=== PATIENT | male | born 1970 | race Caucasian/White ===

== ENCOUNTER 2017-11-14 23:22 | Inpatient (IN) | payer OTHER ==
[~2017-11-14] VITALS: Ht 162.6 cm; Wt 100.0 kg
[2017-11-15] MEDS ORDERED: POTASSIUM CHLORIDE 25 MEQ EFFERVESCENT TAB PO PRN (07:45)
[2017-11-15] MEDS ORDERED: POTASSIUM CHLOR 40 MEQ PREMIX 100 ML IV PRN ×2 (07:45)
[2017-11-15] MEDS ORDERED: RESP: ALBUTEROL 2.5 MG/IPRATROPIUM 0.5 MG NEB (PRN) INH (07:45)
[2017-11-15] MEDS ORDERED: ONDANSETRON HCL 4 MG/2 ML VIAL IV PUSH PRN (07:45)
[2017-11-15] MEDS ORDERED: SENNOSIDES 8.6 MG TAB PO PRN (07:45)
[2017-11-15] MEDS ORDERED: MISCELLANEOUS NURSING INFORMATION XX SCH (07:45)
[2017-11-15] MEDS ORDERED: SODIUM PHOSPHATE INJ 30 MMOL in SODIUM CHLOR 0.9% 250 ML INJ 240 ML IV PRN (07:45)
[2017-11-15] MEDS ORDERED: CHLORHEXIDINE GLUCONATE 2 % 1 PACK (2 CLOTHS) TOP PRN (07:45)
[2017-11-15] MEDS ORDERED: POTASSIUM PHOSPHATE MONOBASIC 500 MG TAB PO/TUBE PRN (07:45)
[2017-11-15] MEDS ORDERED: MAGNESIUM OXIDE 400 MG TAB PO PRN (07:45)
[2017-11-15] MEDS ORDERED: POTASSIUM PHOSPHATE MONOBASIC 500 MG TAB PO PRN (07:45)
[2017-11-15] MEDS ORDERED: POTASSIUM PHOSPHATE INJ 30 MMOL in SODIUM CHLOR 0.9% 250 ML INJ 250 ML IV PRN (07:45)
[2017-11-15] MEDS ORDERED: POTASSIUM CHLOR 20 MEQ PREMIX 100 ML IV PRN ×2 (07:45)
[2017-11-15] MEDS ORDERED: MAGNESIUM HYDROXIDE SUSP 30 ML CUP PO PRN (07:45)
[2017-11-15] MEDS ORDERED: MAGNESIUM SULFATE INJ 4 GM in SODIUM CHLORIDE 0.9% INJ 92 ML IV PRN (07:45)
[2017-11-15] MEDS ORDERED: DEXTROSE 50% IN WATER 50 ML VIAL(D50) IV PUSH PRN (07:45)
[2017-11-15] MEDS ORDERED: MAGNESIUM SULFATE INJ 2 GM in SODIUM CHLORIDE 0.9% INJ 96 ML IV PRN (07:45)
[2017-11-15] MEDS ORDERED: HYDR25TA5 PO (07:58)
[2017-11-15] MEDS ORDERED: OMEP40CA2 (07:58)
[2017-11-15] MEDS ORDERED: METO100T PO (07:58)
[2017-11-15] MEDS ORDERED: AMLO10TA2 PO (07:58)
[2017-11-15] MEDS ORDERED: LOVA10TA PO (07:58)
[2017-11-15] MEDS ORDERED: LISI40TA PO (07:58)
[2017-11-15 08:00] VITALS: BP 148/75; PULSE 68; RESP 12; TEMP 98.9; O2SAT 95
[2017-11-15] MEDS ORDERED: SODIUM CHLOR 0.9% 1000 ML INJ 1,000 ML IV SCH (08:00)
[2017-11-15] MEDS: INSULIN NovoLIN REGULAR SUPPLEMENTAL SCALE SQ SCH ×3 (08:00→21:00)
--- NOTE | 2017-11-15 08:35 | HHI.HP ---
HPI Service Critical Care Medicine Primary Care Physician Unknown Admission Diagnosis Diagnosis: Chief Complaint: headache Travel History International Travel<30 Days: No Contact w/Intl Traveler <30 Da: No Traveled to Known Affected Are: No History of Present Illness This is a 47yM with history of hypertension who was eating dinner when he coughed forcefully and passed out, hitting his head. he sustained a laceration to his forehead. He went to outside hospital ED where they diagnosed him with a depressed skull fracture and sutured his laceration. He is transferred to [facility] for neurosurgical evaluation of his skull fracture. Of note, he does state that he drinks at least 4 pints of beer "when he drinks." He also states this has happened at least once before after forceful coughing. He endorses mild headache and denies any other symptoms, including blurry vision, double vision, vision changes, weakness, numbness, nausea, vomiting, abdominal pain, neck pain , back pain. ROS otherwise negative. Review of Systems Constitutional: DENIES: Diaphoretic episodes, Fatigue, Fever, Chills Eyes: DENIES: Blurred vision, Diplopia, Vision loss, Photosensitivity, Double Vision Ears, nose, mouth, throat: DENIES: Tinnitus Respiratory: DENIES: Apneas, Cough, Wheezing, Hemoptysis, Sputum production, Shortness of breath Cardiovascular: DENIES: Chest pain, Palpitations, Syncope, Dyspnea on Exertion , Lower Extremity Edema, Orthopnea Gastrointestinal: DENIES: Abdominal pain, Constipation, Diarrhea, Nausea, Vomiting Genitourinary: DENIES: Urinary incontinence, Hematuria Musculoskeletal: DENIES: Muscle aches, Back pain, Neck pain Neurologic: COMPLAINS OF: Headache, DENIES: Abnormal gait, Localized weakness, Paresthesias, Seizures, Speech Problems, Tremor, Poor Balance Psychiatric: DENIES: Confusion Past Family Social History Allergies: Coded Allergies: Penicillins (Verified Allergy, Severe, Anaphylaxis, 11/15/17) Past Medical History hypertension Past Surgical History lumbar spine surgery "from the back, and then from the front" Reported Medications Hydrochlorothiazide 25 Mg Tab 25 Mg PO DAILY Lisinopril 40 Mg Tab 40 Mg PO DAILY Lovastatin 10 Mg Tab 10 Mg PO DAILY Metoprolol Tartrate 100 Mg Tab 100 Mg PO BID Amlodipine (Amlodipine Besylate) 10 Mg Tab 10 Mg PO DAILY Omeprazole 40 Mg Cap 40 Mg DAILY Active Ordered Medications See MAR Family History no family history of heart attack, stroke, neurologic problems. Social History smokes 1ppd, drinks 4 pints/day "when he drinks", not every day. denies other drugs. Physical Exam Physical Exam gen: middle-aged male, sitting in bed, no acute distress. heent: ~4cm laceration over the right forehead which is sutured, clean and dry. no echhymoses. pupils are 3mm, briskly reactive, conjugate. EOMI. mucous membranes are moist. neck: no jvd. trachea midline. no tenderness to palpation over midline neck. no tenderness with active or passive motion of the neck. chest: equal chest rise. room air. cv: normal rate, regular rhythm. sinus by tele. abd: soft, nontender, nondistended. no guarding. extr: no edema. no trauma evident. distal pulses 2+ neuro: RASS 0. GCS 15. follows commands. pupils as above. CN II - XII grossly intact. TREVA 5/5 in all extremities. no ataxia noted. sensation grossly intact. Laboratory Laboratory Tests Test 11/15/17 05:30 Caprini VTE Risk Assessment Caprini VTE Risk Assessment: Mod/High Risk (score >= 2) Caprini Risk Assessment Model Point Value = 1 Point Value = 2 Point Value = 3 Point Value = 5 Age 41-60 Minor surgery BMI > 25 kg/m2 Swollen legs Varicose veins or History of unexplained or recurrent spontaneous Oral contraceptives or hormone replacement Sepsis (< 1 month) Serious lung disease, including pneumonia (< 1 month) Abnormal pulmonary function Acute myocardial infarction Congestive heart failure (< 1 month) History of inflammatory bowel disease Medical patient at bed rest Age 61-74 Arthroscopic surgery Major open surgery (> 45 min) Laparoscopic surgery (> 45 min) Malignancy Confined to bed (> 72 hours) Immobilizing plaster cast Central venous access Age >= 75 History of VTE Family history of VTE Factor V Leiden Prothrombin [id number] Lupus anticoagulant Anticardiolipin antibodies Elevated serum homocysteine Heparin-induced thrombocytopenia Other congenital or acquired thrombophilia Stroke (< 1 month) Elective arthroplasty Hip, pelvis, or leg fracture Acute spinal cord injury (< 1 month) Prophylaxis Regimen Total Risk Factor Score Risk Level Prophylaxis Regimen 0-1 Low Early ambulation 2 Moderate Order ONE of the following: *Sequential Compression Device (SCD) *Heparin 5000 units SQ BID 3-4 Higher Order ONE of the following medications: *Heparin 5000 units SQ TID *Enoxaparin/Lovenox 40 mg SQ daily (WT < 150 kg, CrCl > 30 mL/min) *Enoxaparin/Lovenox 30 mg SQ daily (WT < 150 kg, CrCl > 10-29 mL/min) *Enoxaparin/Lovenox 30 mg SQ BID (WT < 150 kg, CrCl > 30 mL/min) AND/OR *Sequential Compression Device (SCD) 5 or more Highest Order ONE of the following medications: *Heparin 5000 units SQ TID (Preferred with Epidurals) *Enoxaparin/Lovenox 40 mg SQ daily (WT < 150 kg, CrCl > 30 mL/min) *Enoxaparin/Lovenox 30 mg SQ daily (WT < 150 kg, CrCl > 10-29 mL/min) *Enoxaparin/Lovenox 30 mg SQ BID (WT < 150 kg, CrCl > 30 mL/min) AND *Sequential Compression Device (SCD) Assessment and Plan Assessment and Plan Assessment: 47yM with syncopal episode while consuming etoh with head trauma and small skull fracture. will ask neurosurgery to consult and make recommendations regarding his skull fracture. In terms of syncope, highest in differential is etoh intoxication. He does state he has had this before with forceful cough, and vasovagal syncope would be second in the differential. have kept him on telemetry without evidence of bradycardia or arrhythmia. From my standpoint, safe to discharge home after neurosurgery evaluation, unless they need further eval. Stable to transfer out of ICU. Skull Fracture - transferred from [facility] - non-op management per neurosurgery - consult neurosurgery: Dr. Mauro Syncope - carotid dopplers - 2d echo - lipids - keep on telemetry - likely due to etoh intoxication, but may be vasovagal. Hypertension - restart home meds Hyperlipidemia - restart home statin advance diet SCDs SQH transfer to hospitalist transfer out of ICU. Greg Flaherty MD Nov 15, 2017 08:35
[2017-11-15] MEDS: DOCUSATE SODIUM 50 MG/SENNA 8.6 MG TAB PO SCH ×2 (09:00→20:44)
--- NOTE | 2017-11-15 09:10 | PD.CONS ---
(Amrik Mauro MD) HPI Consult Requested By Primary Care Physician Unknown (Amrik Mauro MD) Service Neurosurgery Consult Requested By Critical Care Reason for Consult Skull fracture History of Present Illness Mr. Nuñez is a 47-year-old male who presents to [facility] as a transfer from [facility] for traumatic head injury. Apparently last night he was out for dinner, he had a forceful cough and reported blacking out and falling to the floor hitting his head. Denies any seizure-like activities, bowel or bladder incontinence, tongue biting. He was taken to [facility] where he was found to have depressed skull fracture. He also had repair of forehead lac. He was transferred to [facility] for neurosurgical evaluation. Currently the patient is awake alert. He reports improving headaches. He denies drainage from his ears or nose. He denies any focal weakness, seizure-like activities, chest pain, shortness of breath. He has chronic paresthesias in his feet and chronic lumbar pain due to his multiple lumbar surgeries. He denies any other history of seizures. However he has had in the past prior history of syncope during a forceful cough. He has not been worked up for this. (Makayla Montez) Review of Systems Constitutional: DENIES: Fever, Chills Eyes: DENIES: Blurred vision, Diplopia, Vision loss Ears, nose, mouth, throat: DENIES: Hearing loss Respiratory: DENIES: Apneas, Hemoptysis, Shortness of breath Cardiovascular: COMPLAINS OF: Syncope, DENIES: Chest pain, Palpitations Gastrointestinal: DENIES: Abdominal pain, Nausea, Vomiting Genitourinary: DENIES: Urinary incontinence Musculoskeletal: COMPLAINS OF: Joint pain, Back pain Neurologic: COMPLAINS OF: Headache (improving), Paresthesias, DENIES: Seizures , Speech Problems (Makayla Montez) Past Family Social History Allergies: Coded Allergies: Penicillins (Verified Allergy, Severe, Anaphylaxis, 11/15/17) Reported Medications Current Medications Potassium Chloride 100 ml @ 50 mls/hr Q2H PRN IV For Potassium 2.8 - 3.2 mEq/L ; Start 11/15/17 at 07:45 Potassium Chloride 100 ml @ 50 mls/hr Q2H PRN IV For Potassium 2.8 - 3.2 mEq/L ; Start 11/15/17 at 07:45 Potassium Bicarb/ Potassium Chloride (K-Lyte Cl Eff) 50 meq UNSCH PRN PO For Potassium 3.3 - 3.5 mEq/L; Start 11/15/17 at 07:45 Potassium Chloride 100 ml @ 25 mls/hr UNSCH PRN IV For Potassium 3.3 - 3.5 mEq /L; Start 11/15/17 at 07:45 Potassium Chloride 100 ml @ 50 mls/hr Q2H PRN IV For Potassium 3.3 - 3.5 mEq/L ; Start 11/15/17 at 07:45 Magnesium Sulfate 4 gm/Sodium Chloride 100 ml @ 50 mls/hr UNSCH PRN IV For Magnesium 0.9 - 1.1 mg/dL; Start 11/15/17 at 07:45 Magnesium Oxide (Mag-Ox) 800 mg UNSCH PRN PO For Magnesium 1.2 - 1.6 mg/dL; Start 11/15/17 at 07:45 Magnesium Sulfate 2 gm/Sodium Chloride 100 ml @ 50 mls/hr UNSCH PRN IV For Magnesium 1.2 - 1.6 mg/dL; Start 11/15/17 at 07:45 Potassium Phosphate (K-Phos) 2,000 mg Q4H PRN PO For Phosphorus < 2.5 mg/dL; Start 11/15/17 at 07:45 Sodium Phosphate 30 mmol/Sodium Chloride 250 ml @ 42 mls/hr UNSCH PRN IV For Phosphorus < 2.5 mg/dL; Start 11/15/17 at 07:45 Potassium Phosphate (K-Phos) 2,000 mg UNSCH PRN PO/TUBE SEE LABEL COMMENTS; Start 11/15/17 at 07:45 Potassium Phosphate 30 mmol/ Sodium Chloride 260 ml @ 42 mls/hr UNSCH PRN IV SEE LABEL COMMENTS; Start 11/15/17 at 07:45 Dextrose (D50w (Vial) Inj) 25 ml UNSCH PRN IV PUSH HYPOGLYCEMIA-SEE COMMENTS; Start 11/15/17 at 07:45 Insulin Human Regular (NovoLIN R SUPPLEMENTAL SCALE) 1 ACHS AND 3AM SQ ; Start 11/15/17 at 08:00 Sodium Chloride 1,000 ml @ 84 mls/hr [id number] IV ; Start 11/15/17 at 08:00; Stop 11/15/17 at 12:01; Status DC Ondansetron HCl (Zofran Inj) 4 mg Q6H PRN IV PUSH NAUSEA OR VOMITING; Start at 07:45 Albuterol/ Ipratropium (Duoneb Neb) 1 ampule Q2HR NEB PRN INH WHEEZING; Start 11/15/17 at 07:45 Miscellaneous Information 1 Q361D XX Last administered on 11/15/17at 07:45; Start 11/15/17 at 07:45 Chlorhexidine Gluconate (Chlorhexidine 2% Cloth) 3 pack Taper DAILY@04 TOP ; Start 11/16/17 at 04:00; Stop 11/12/18 at 03:59 Chlorhexidine Gluconate (Chlorhexidine 2% Cloth) 3 pack UNSCH PRN TOP HYGIENIC CARE; Start 11/15/17 at 07:45 Senna/Docusate Sodium (Nereida-Colace) 1 tab BID PO ; Start 11/15/17 at 09:00 Magnesium Hydroxide (Milk Of Magnesia Liq) 30 ml Q12H PRN PO Mild constipation ; Start 11/15/17 at 07:45 Sennosides (Senokot) 17.2 mg Q12H PRN PO Moderate constipation; Start 11/15/17 at 07:45 Amlodipine Besylate (Norvasc) 10 mg DAILY PO Last administered on 11/15/17at 10: 49; Start 11/15/17 at 11:00 Hydrochlorothiazide (Hydrodiuril) 25 mg DAILY PO Last administered on at 10:50; Start 11/15/17 at 11:00 Pravastatin Sodium (Pravachol) 10 mg DAILY PO Last administered on 11/15/17at 10 :50; Start 11/15/17 at 11:00 Metoprolol Tartrate (Lopressor) 100 mg BID PO Last administered on 11/15/17at 10 :50; Start 11/15/17 at 11:00 Lisinopril (Prinivil) 40 mg DAILY PO Last administered on 11/15/17at 10:50; Start 11/15/17 at 11:00 Pantoprazole Sodium (Protonix) 40 mg DAILY PO Last administered on 11/15/17at 10 :50; Start 11/15/17 at 11:00 (Amrik Mauro MD) Past Medical History Hypertension Past Surgical History Lumbar surgery Reported Medications Hydrochlorothiazide 25 Mg Tab 25 Mg PO DAILY Lisinopril 40 Mg Tab 40 Mg PO DAILY Lovastatin 10 Mg Tab 10 Mg PO DAILY Metoprolol Tartrate 100 Mg Tab 100 Mg PO BID Amlodipine (Amlodipine Besylate) 10 Mg Tab 10 Mg PO DAILY Omeprazole 40 Mg Cap 40 Mg DAILY Active Ordered Medications Current Medications Medications (Trade) Dose Ordered Sig/Anita Route PRN Reason Start Time Stop Time Status Last Admin Dose Admin Potassium Chloride 100 ml @ 50 mls/hr Q2H PRN IV For Potassium 2.8 - 3.2 mEq/L 11/15/17 07:45 Potassium Chloride 100 ml @ 50 mls/hr Q2H PRN IV For Potassium 2.8 - 3.2 mEq/L 11/15/17 07:45 Potassium Bicarb/ Potassium Chloride (K-Lyte Cl Eff) 50 meq UNSCH PRN PO For Potassium 3.3 - 3.5 mEq/L 11/15/17 07:45 Potassium Chloride 100 ml @ 25 mls/hr UNSCH PRN IV For Potassium 3.3 - 3.5 mEq/L 11/15/17 07:45 Potassium Chloride 100 ml @ 50 mls/hr Q2H PRN IV For Potassium 3.3 - 3.5 mEq/L 11/15/17 07:45 Magnesium Sulfate 4 gm/Sodium Chloride 100 ml @ 50 mls/hr UNSCH PRN IV For Magnesium 0.9 - 1.1 mg/dL 11/15/17 07:45 Magnesium Oxide (Mag-Ox) 800 mg UNSCH PRN PO For Magnesium 1.2 - 1.6 mg/dL 11/15/17 07:45 Magnesium Sulfate 2 gm/Sodium Chloride 100 ml @ 50 mls/hr UNSCH PRN IV For Magnesium 1.2 - 1.6 mg/dL 11/15/17 07:45 Potassium Phosphate (K-Phos) 2,000 mg Q4H PRN PO For Phosphorus < 2.5 mg/dL 11/15/17 07:45 Sodium Phosphate 30 mmol/Sodium Chloride 250 ml @ 42 mls/hr UNSCH PRN IV For Phosphorus < 2.5 mg/dL 11/15/17 07:45 Potassium Phosphate (K-Phos) 2,000 mg UNSCH PRN PO/TUBE SEE LABEL COMMENTS 11/15/17 07:45 Potassium Phosphate 30 mmol/ Sodium Chloride 260 ml @ 42 mls/hr UNSCH PRN IV SEE LABEL COMMENTS 11/15/17 07:45 Dextrose (D50w (Vial) Inj) 25 ml UNSCH PRN IV PUSH HYPOGLYCEMIA-SEE COMMENTS 11/15/17 07:45 Insulin Human Regular (NovoLIN R SUPPLEMENTAL SCALE) 1 ACHS AND 3AM SQ 11/15/17 08:00 Sodium Chloride 1,000 ml @ 84 mls/hr [id number] IV 11/15/17 08:00 Ondansetron HCl (Zofran Inj) 4 mg Q6H PRN IV PUSH NAUSEA OR VOMITING 11/15/17 07:45 Albuterol/ Ipratropium (Duoneb Neb) 1 ampule Q2HR NEB PRN INH WHEEZING 11/15/17 07:45 Miscellaneous Information 1 Q361D XX 11/15/17 07:45 11/15/17 07:45 Chlorhexidine Gluconate (Chlorhexidine 2% Cloth) 3 pack Taper DAILY@04 TOP 11/16/17 04:00 11/12/18 03:59 Chlorhexidine Gluconate (Chlorhexidine 2% Cloth) 3 pack UNSCH PRN TOP HYGIENIC CARE 11/15/17 07:45 Senna/Docusate Sodium (Nereida-Colace) 1 tab BID PO 11/15/17 09:00 Magnesium Hydroxide (Milk Of Magnesia Liq) 30 ml Q12H PRN PO Mild constipation 11/15/17 07:45 Sennosides (Senokot) 17.2 mg Q12H PRN PO Moderate constipation 11/15/17 07:45 Family History no family history of heart attack, stroke, neurologic problems Social History smokes tobacco approx 1ppd drinks 4 pints/day on days he drink, not daily denies illicit drug use (Makayla Montez) Physical Exam Physical Exam General: He is a well-nourished slightly overweight male, not acute distress HEENT: No other obvious skull abnormality seen. Pupils equal. Nonicteric sclera. No CSF drainage noted from his ears or nose. Neuro: Awake, alert, oriented 3. Speech is fluent. Follows commands without apraxia. Cranial nerves: pupil equal, round, and reactive to light. Extra- ocular movements are intact. Facial motor and sensory function are normal and symmetrical. Gross hearing is intact, bilaterally. The uvula is midline and elevates symmetrically with the soft palate. Sternocleidomastoid and trapezius muscles have normal and symmetrical strength. Other cranial nerves are intact. Neck is soft and supple. Cervical spine has a full range of motion in anterior flexion, extension, lateral bending, and rotation without pain. There is no tenderness to palpation to the spinous processes or paraspinal muscles. Musculoskeletal: reveals normal bulk and tone overall without rigidity, no obvious deformities to his extremities. Muscle strength is 5/5 in all muscle groups of both upper extremities including deltoid, biceps, triceps, brachioradialis, wrist extension and mental health specialist. In the lower extremities, strength is 5/5 in both iliopsoas, quadriceps, hamstrings, plantar flexion, dorsiflexion , and extensor hallicus longus. Sensory examination is intact to light touch in both the upper and lower extremities, symmetrically. Deep tendon reflexes are 2+ and symmetrical in the biceps, triceps, and brachioradialis, bilaterally, in the upper extremities. In the lower extremities , the patellar and Achilles are 2+, bilaterally. There is a bilateral plantar flexion response. Hoffmanns sign is negative. There is no clonus or other abnormal reflexes noted. Cerebellar examination is intact to [id number] test, rapid rhythmic alternating motion. There is no dysmetria, dysdiadochokinesia, truncal ataxia, or tremor. Heart regular rate rhythm Respiratory lungs clear to auscultate bilaterally Abdomen soft nontender Skin warm and dry Laboratory Laboratory Tests Test 11/15/17 05:30 (Amrik Mauro MD) Physical Exam General: Well-nourished slightly overweight male HEENT: No other obvious skull abnormality seen. Pupils equal. Nonicteric sclera. No CSF drainage noted from his ears or nose. Neuro: Awake, alert, oriented 3. Speech is fluent. Follows commands without apraxia. Cranial nerves: pupil equal, round, and reactive to light. Extra- ocular movements are intact. Facial motor and sensory function are normal and symmetrical. Gross hearing is intact, bilaterally. The uvula is midline and elevates symmetrically with the soft palate. Sternocleidomastoid and trapezius muscles have normal and symmetrical strength. Other cranial nerves are intact. Neck is soft and supple. Cervical spine has a full range of motion in anterior flexion, extension, lateral bending, and rotation without pain. There is no tenderness to palpation to the spinous processes or paraspinal muscles. Musculoskeletal: reveals normal bulk and tone overall without rigidity, no obvious deformities to his extremities. Muscle strength is 5/5 in all muscle groups of both upper extremities including deltoid, biceps, triceps, brachioradialis, wrist extension and mental health specialist. In the lower extremities, strength is 5/5 in both iliopsoas, quadriceps, hamstrings, plantar flexion, dorsiflexion , and extensor hallicus longus. Sensory examination is intact to light touch in both the upper and lower extremities, symmetrically. Deep tendon reflexes are 2+ and symmetrical in the biceps, triceps, and brachioradialis, bilaterally, in the upper extremities. In the lower extremities , the patellar and Achilles are 2+, bilaterally. There is a bilateral plantar flexion response. Hoffmanns sign is negative. There is no clonus or other abnormal reflexes noted. Cerebellar examination is intact to [id number] test, rapid rhythmic alternating motion. There is no dysmetria, dysdiadochokinesia, truncal ataxia, or tremor. Heart regular rate rhythm Respiratory lungs clear to auscultate bilaterally Abdomen soft nontender (Makayla Montez) Attending Statement I reviewed his radiological studies including the outside radiological studies from [place], as well as the studies done at [place] [facility] 11/15/17 0000 Signed Impressions: Service Date/Time: Wednesday, November 15, 2017 10:55 - CONCLUSION: 1. Acute minimally displaced fracture along the expected region of the junction of the right frontal and greater wing of the sphenoid bones. 2. Tiny 3 mm extra- axial subdural bleed along the anterior aspect of the right middle cranial fossa results in no mass effect. 3. Acute nondisplaced fracture involving the right zygomatic arch. 4. Opacification of the right mastoid air cells. 5. Fluid level within the sphenoid sinuses bilaterally. 6. Tiny calcified left frontal meningioma measuring 7 x 4 mm. Viktor York MD Carotid Artery Ultrasound 11/15/17 0000 Signed Impressions: Service Date/Time: Wednesday, November 15, 2017 13:12 - CONCLUSION: 1. Minimal right carotid plaque. 2. No hemodynamically significant carotid flow-limiting stenosis. 3. Antegrade vertebral artery flow bilaterally. Armen Castle MD Continue neuro checks in a serial fashion. Small epidural hematoma. Monitor and manage nonoperatively. A follow-up CT of the head will be obtained in 24 hours. Meningioma. Meningiomas are usually benign tumors which have a tendency of growing very slowly. In some patients, they can present with symptoms of mass effect or they can develop epileptic seizures. Sometimes, the tumors can suffer a malignant transformation, however this is extremely rare. In many patients do not grow significantly in size. The alternatives of conservative follow up versus a surgical resection were discussed with the patient. aggressive pulmonary toilette, nasotracheal suction, and breathing treatments with nebulizers. Renal. monitor closely urine output, BUN and creatinine Endocrine. Monitor serial Acu checks and SSI as needed in detail ID monitor for signs of infection Protonix for stress ulcer prophylaxis Nick hose and SCD's for DVT prophylaxis. (Amrik Mauro MD) Amrik Mauro MD Nov 15, 2017 09:10 Makayla Montez Nov 15, 2017 09:52
[2017-11-15 10:00] VITALS: PULSE 78
[2017-11-15] MEDS: PANTOPRAZOLE SOD 40 MG DELAYED RELEASE TAB PO SCH (10:50)
[2017-11-15] MEDS: PRAVASTATIN SOD 10 MG TAB PO SCH (10:50)
[2017-11-15] MEDS: HYDROCHLOROTHIAZIDE 25 MG TAB PO SCH (10:50)
[2017-11-15] MEDS: METOPROLOL TARTRATE 100 MG TAB PO SCH ×2 (10:50→20:43)
[2017-11-15] MEDS: LISINOPRIL 20 MG TAB PO SCH (10:50)
--- NOTE | 2017-11-15 11:22 | RADRPT ---
EXAM DATE/TIME: 11/15/2017 10:55 [facility] COMPARISON: No previous studies available for comparison. INDICATIONS : Depressed skull fracture. RADIATION DOSE: 56.35 CTDIvol (mGy) MEDICAL HISTORY : Hypertension. Skull fracture. SURGICAL HISTORY : None. ENCOUNTER: Initial ACUITY: 1 day PAIN SCALE: 3/10 LOCATION: Bilateral cranial TECHNIQUE: Multiple contiguous axial images were obtained of the head. Using automated exposure control and adj ustment of the mA and/or kV according to patient size, radiation dose was kept as low as reasonably a chievable to obtain optimal diagnostic quality images. DICOM format image data is available electro nically for review and comparison. FINDINGS: There is evidence of an acute minimally displaced fracture involving the expected region of the junct ion of the right frontal bone and greater wing of the sphenoid bone. Tiny 3 mm extra-axial subdural b leed is noted within the anterior aspect of the right middle cranial fossa but results in no mass eff ect. There is an acute nondisplaced fracture involving the right zygomatic arch. There is a tiny calc ified left frontal meningioma measuring 7 x 4 mm. The ventricles, sulci and cisterns are normal size shape and position for the patient's age. There is no acute infarct, mass effect or midline shift. No acute intra-axial bleed is noted. There is opacification of the right mastoid air cells. There is a fluid level within the sphenoid sinuses bilaterally. CONCLUSION: 1. Acute minimally displaced fracture along the expected region of the junction of the right frontal and greater wing of the sphenoid bones. 2. Tiny 3 mm extra-axial subdural bleed along the anterior aspect of the right middle cranial fossa r esults in no mass effect. 3. Acute nondisplaced fracture involving the right zygomatic arch. 4. Opacification of the right mastoid air cells. 5. Fluid level within the sphenoid sinuses bilaterally. 6. Tiny calcified left frontal meningioma measuring 7 x 4 mm. Viktor York MD on November 15, 2017 at 11:10 Board Certified Radiologist. This report was verified electronically.
[2017-11-15 12:00] VITALS: BP 141/64; PULSE 76; PULSE 78; RESP 14; TEMP 98.7; O2SAT 94
[2017-11-15 12:30] LABS: HEMOGLOBIN 13.1 GM/DL (13.0-17.0); MEAN CELL VOLUME 86.8 FL (80.0-100.0); MEAN CORPUSCULAR HGB CONC 34.5 % (32.0-36.0); MEAN PLATELET VOLUME 8.9 FL (7.0-11.0); PLATELET COUNT 167 TH/MM3 (150-450); RED BLOOD COUNT 4.38 MIL/MM3 (4.50-5.90); RED CELL DISTRIBUTION WIDTH 13.8 % (11.6-17.2); WHITE BLOOD COUNT 8.7 TH/MM3 (4.0-11.0)
[2017-11-15 12:53] LABS: ALBUMIN 3.5 GM/DL (3.4-5.0); ALT (GPT) 35 U/L (12-78); AST (GOT) 25 U/L (15-37); BICARBONATE 30.8 MEQ/L (21.0-32.0); BLOOD UREA NITROGEN 20 MG/DL (7-18); CALCIUM 8.7 MG/DL (8.5-10.1); CHLORIDE 86 MEQ/L (98-107); CREATININE 1.12 MG/DL (0.60-1.30); GLOMERULAR FILTRATION RATE 70 ML/MIN (>89); GLUCOSE,RANDOM 150 MG/DL (74-106); SODIUM (NA) 126 MEQ/L (136-145)
[2017-11-15 12:55] LABS: CHOLESTEROL/ HDL RATIO 1.63 RATIO
[2017-11-15 12:56] LABS: ALKALINE PHOSPHATASE 75 U/L (45-117); TOTAL BILIRUBIN ADULT 0.5 MG/DL (0.2-1.0); TOTAL PROTEIN 7.9 GM/DL (6.4-8.2)
--- NOTE | 2017-11-15 14:54 | RADRPT ---
EXAM DATE/TIME: 11/15/2017 13:12 [place] COMPARISON: No previous studies available for comparison. INDICATIONS : Syncope. MEDICAL HISTORY : Chronic obstructive pulmonary disease. SURGICAL HISTORY : Orthopaedic surgery. ENCOUNTER: Initial ACUITY: 2 days PAIN SCORE: 0/10 LOCATION: Bilateral neck PEAK SYSTOLIC VELOCITIES (cm/sec): ICA/CCA RATIO: Right: 0.6 Left: 0.6 ICA: Right: 60 Left: 64 CCA: Right: 100 Left: 101 ECA: Right: 79 Left: 81 VERTEBRAL: Right: 41 antegrade Left: 53 antegrade Elevated flow velocities and ICA/CCA ratios have been found to correlate with increased degrees of vessel stenosis, calculated as percentage of diameter relative to a normal segment of distal ICA/CCA FINDINGS: RIGHT CAROTID: No significant stenosis is visualized. The waveforms are within normal limits. LEFT CAROTID: No significant stenosis is visualized. The waveforms are within normal limits. VERTEBRAL ARTERIES: Antegrade flow is seen in both vertebral arteries. MISCELLANEOUS: None. CONCLUSION: 1. Minimal right carotid plaque. 2. No hemodynamically significant carotid flow-limiting stenosis. 3. Antegrade vertebral artery flow bilaterally. Armen Castle MD on November 15, 2017 at 14:51 Board Certified Radiologist. This report was verified electronically.
[2017-11-15 16:19] VITALS: BP 139/75; PULSE 79; RESP 18; TEMP 97.8; O2SAT 97
--- NOTE | 2017-11-15 17:08 | ECHRPT ---
Indication: CVA/TIA CONCLUSIONS Normal left ventricular size. Wall thickness is normal. The left ventricular systolic function is low normal with an estimated ejection fraction of 50%. No definite wall motion abnormalities. The aortic valve is not well visualized. Mild mitral annular calcification is present. BP: / HR: Rhythm: MEASUREMENTS (Male / Female) Normal Values Technical Quality: 2D ECHO LV Diastolic Diameter PLAX 4.6 cm 4.2 - 5.9 / 3.9 - 5.3 cm LV Systolic Diameter PLAX 3.5 cm IVS Diastolic Thickness 0.7 cm 0.6 - 1.0 / 0.6 - 0.9 cm LVPW Diastolic Thickness 0.8 cm 0.6 - 1.0 / 0.6 - 0.9 cm LV Relative Wall Thickness 0.3 RV Internal Dim ED PLAX 2.4 cm LA Systolic Diameter LX 3.7 cm 3.0 - 4.0 / 2.7 - 3.8 cm DOPPLER Mitral E Point Velocity 96.9 cm/s Mitral A Point Velocity 72.2 cm/s Mitral E to A Ratio 1.3 TR Peak Velocity 147.0 cm/s TR Peak Gradient 8.6 mmHg Right Atrial Pressure 10.0 mmHg Pulmonary Artery Systolic Pressu 18.6 mmHg Right Ventricular Systolic Press 18.6 mmHg FINDINGS LEFT VENTRICLE Normal left ventricular size. Wall thickness is normal. The left ventricular systolic function is low normal with an estimated ejection fraction of 50%. No definite wall motion abnormalities. RIGHT VENTRICLE Normal right ventricular size and systolic function. LEFT ATRIUM The left atrial size is normal. RIGHT ATRIUM The right atrial size is normal. ATRIAL SEPTUM Normal atrial septal thickness without atrial level shunting by limited color doppler interrogation. AORTA The aortic root and proximal ascending aorta are normal in size on limited imaging. MITRAL VALVE Mild mitral annular calcification is present. AORTIC VALVE The aortic valve is not well visualized. TRICUSPID VALVE Structurally normal tricuspid valve. No tricuspid valve stenosis or regurgitation. PULMONARY VALVE No pulmonary valve regurgitation or stenosis. VESSELS The inferior vena cava is normal in size. PERICARDIUM No pericardial effusion. Sven Ashby MD (Electronically Signed) Final Date:15 November 2017 17:07
[2017-11-15 20:00] VITALS: BP 127/65; PULSE 81; RESP 15; O2SAT 97
[2017-11-15 23:00] VITALS: PULSE 67
[2017-11-16] VITALS: BP 146/81; PULSE 73; RESP 15; TEMP 98; O2SAT 94
[2017-11-16] MEDS: INSULIN NovoLIN REGULAR SUPPLEMENTAL SCALE SQ SCH ×3 (02:51→12:00)
[2017-11-16 04:00] VITALS: BP 142/81; PULSE 72; RESP 15; TEMP 98.3; O2SAT 96
[2017-11-16] MEDS ORDERED: CHLORHEXIDINE GLUCONATE 2 % 1 PACK (2 CLOTHS) TOP SCH (04:00)
[2017-11-16 05:38] LABS: HEMATOCRIT 41.6 % (39.0-51.0); HEMOGLOBIN 14.3 GM/DL (13.0-17.0); MEAN CELL VOLUME 88.9 FL (80.0-100.0); MEAN CORPUSCULAR HEMOGLOBIN 30.5 PG (27.0-34.0); MEAN CORPUSCULAR HGB CONC 34.4 % (32.0-36.0); MEAN PLATELET VOLUME 8.7 FL (7.0-11.0); PLATELET COUNT 153 TH/MM3 (150-450); RED BLOOD COUNT 4.68 MIL/MM3 (4.50-5.90); RED CELL DISTRIBUTION WIDTH 13.7 % (11.6-17.2); WHITE BLOOD COUNT 7.3 TH/MM3 (4.0-11.0)
[2017-11-16 06:02] LABS: BICARBONATE 29.6 MEQ/L (21.0-32.0); CALCIUM 9.6 MG/DL (8.5-10.1); CREATININE 0.99 MG/DL (0.60-1.30)
[2017-11-16 08:00] VITALS: BP 135/82; PULSE 74; RESP 15; TEMP 98.2; O2SAT 98
[2017-11-16] MEDS: PANTOPRAZOLE SOD 40 MG DELAYED RELEASE TAB PO SCH (10:00)
[2017-11-16] MEDS: LISINOPRIL 20 MG TAB PO SCH (10:00)
[2017-11-16] MEDS: PRAVASTATIN SOD 10 MG TAB PO SCH (10:01)
[2017-11-16] MEDS: DOCUSATE SODIUM 50 MG/SENNA 8.6 MG TAB PO SCH (10:01)
[2017-11-16] MEDS: METOPROLOL TARTRATE 100 MG TAB PO SCH (10:01)
[2017-11-16] MEDS: HYDROCHLOROTHIAZIDE 25 MG TAB PO SCH (10:01)
--- NOTE | 2017-11-16 10:38 | HHI.PR ---
Subjective Remarks Follow-up skull fracture/Small epidural hematoma November 16, 2017-patient seen and examined, denies any headache, visual change or dizziness. No acute event overnight. States he is ready for discharge. Vitals stable. Objective Vitals Vital Signs Date Time Temp Pulse Resp B/P (MAP) Pulse Ox O2 Delivery O2 Flow Rate FiO2 11/16/17 08:00 98.2 74 15 135/82 (99) 98 11/16/17 04:00 98.3 72 15 142/81 (101) 96 11/16/17 00:00 98.0 73 15 146/81 (102) 94 11/15/17 23:00 67 11/15/17 20:00 81 15 127/65 (85) 97 11/15/17 19:00 97 Room Air 11/15/17 16:19 97.8 79 18 139/75 (96) 97 11/15/17 12:00 78 11/15/17 12:00 98.7 76 14 141/64 (89) 94 I/O 11/15/17 11/15/17 11/15/17 11/16/17 11/16/17 11/16/17 07:00 15:00 23:00 07:00 15:00 23:00 Intake Total 120 ml Balance 120 ml Intake Oral 120 ml # Voids 4 Result Diagram: 11/16/17 0510 11/16/17 0510 Imaging Last Impressions Head CT 11/15/17 0000 Signed Impressions: Service Date/Time: Wednesday, November 15, 2017 10:55 - CONCLUSION: 1. Acute minimally displaced fracture along the expected region of the junction of the right frontal and greater wing of the sphenoid bones. 2. Tiny 3 mm extra- axial subdural bleed along the anterior aspect of the right middle cranial fossa results in no mass effect. 3. Acute nondisplaced fracture involving the right zygomatic arch. 4. Opacification of the right mastoid air cells. 5. Fluid level within the sphenoid sinuses bilaterally. 6. Tiny calcified left frontal meningioma measuring 7 x 4 mm. Viktor York MD Carotid Artery Ultrasound 11/15/17 0000 Signed Impressions: Service Date/Time: Wednesday, November 15, 2017 13:12 - CONCLUSION: 1. Minimal right carotid plaque. 2. No hemodynamically significant carotid flow-limiting stenosis. 3. Antegrade vertebral artery flow bilaterally. Armen Castle MD Objective Remarks GENERAL: NAD SKIN: Warm and dry. HEAD: Normocephalic with few stitches in place EYES: No scleral icterus. No injection or drainage. NECK: Supple, trachea midline. No JVD or lymphadenopathy. CARDIOVASCULAR: Regular rate and rhythm without murmurs, gallops, or rubs. RESPIRATORY: Breath sounds equal bilaterally. No accessory muscle use. GASTROINTESTINAL: Abdomen soft, non-tender, nondistended. MUSCULOSKELETAL: No cyanosis, or edema. BACK: Nontender without obvious deformity. No CVA tenderness. Last Impressions Head CT 11/15/17 0000 Signed Impressions: Service Date/Time: Wednesday, November 15, 2017 10:55 - CONCLUSION: 1. Acute minimally displaced fracture along the expected region of the junction of the right frontal and greater wing of the sphenoid bones. 2. Tiny 3 mm extra- axial subdural bleed along the anterior aspect of the right middle cranial fossa results in no mass effect. 3. Acute nondisplaced fracture involving the right zygomatic arch. 4. Opacification of the right mastoid air cells. 5. Fluid level within the sphenoid sinuses bilaterally. 6. Tiny calcified left frontal meningioma measuring 7 x 4 mm. Viktor York MD Carotid Artery Ultrasound 11/15/17 0000 Signed Impressions: Service Date/Time: Wednesday, November 15, 2017 13:12 - CONCLUSION: 1. Minimal right carotid plaque. 2. No hemodynamically significant carotid flow-limiting stenosis. 3. Antegrade vertebral artery flow bilaterally. Armen Castle MD Procedures none A/P Problem List: (1) Skull fracture ICD Code: S02.91XA - Unspecified fracture of skull, initial encounter for closed fracture (2) Epidural hematoma ICD Code: S06.4X9A - Epidural hemorrhage with loss of consciousness of unspecified duration, initial encounter Assessment and Plan 47-year-old man with Skull Fracture Small epidural hematoma - non-op management per neurosurgery - Monitor Neuro sxs Syncope - carotid dopplers wnl - 2d echo with EF 50% - LDL 46 - likely due to etoh intoxication +/- vasovagal. Hypertension - Continue home meds Hyperlipidemia - Continue home statin SCDs [facility] Discharge Planning Discharge patient to home Condition on discharge: Improved Regular Diet as tolerated Ad [place] activity Rx written:none Follow-up with primary care physician in 1 week Edinson Blanco MD Nov 16, 2017 10:38
[2017-11-16 12:00] VITALS: BP 131/76; PULSE 77; RESP 12; TEMP 98.6; O2SAT 95
--- NOTE | 2017-11-16 13:43 | HHI.NSPN ---
Note Status Status: Progress Note Interval History Diagnosis Head Injury Interval History Mr. Nuñez is a 47-year-old male who presents to [facility] as a transfer from [facility] for traumatic head injury. Apparently last night he was out for dinner, he had a forceful cough and reported blacking out and falling to the floor hitting his head. Denies any seizure-like activities, bowel or bladder incontinence, tongue biting. He was taken to [facility] where he was found to have depressed skull fracture. He also had repair of forehead lac. He was transferred to [facility] for neurosurgical evaluation. Currently the patient is awake alert. He reports improving headaches. He denies drainage from his ears or nose. He denies any focal weakness, seizure-like activities, chest pain, shortness of breath. He has chronic paresthesias in his feet and chronic lumbar pain due to his multiple lumbar surgeries. He denies any other history of seizures. However he has had in the past prior history of syncope during a forceful cough. He has not been worked up for this. 11/16. Alert, awake, ambulating. No focal deficits. Syncope workup in progress Labs, Micro, & Vital Signs Results Date Time Temp Pulse Resp B/P (MAP) Pulse Ox O2 Delivery O2 Flow Rate FiO2 11/16/17 12:10 Room Air 11/16/17 12:00 98.6 77 12 131/76 (94) 95 11/16/17 08:00 98.2 74 15 135/82 (99) 98 11/16/17 04:00 98.3 72 15 142/81 (101) 96 11/16/17 00:00 98.0 73 15 146/81 (102) 94 11/15/17 23:00 67 11/15/17 20:00 81 15 127/65 (85) 97 11/15/17 19:00 97 Room Air 11/15/17 16:19 97.8 79 18 139/75 (96) 97 Constitutional Vital Signs Date Time Temp Pulse Resp B/P (MAP) Pulse Ox O2 Delivery O2 Flow Rate FiO2 11/16/17 12:10 Room Air 11/16/17 12:00 98.6 77 12 131/76 (94) 95 11/16/17 08:00 98.2 74 15 135/82 (99) 98 11/16/17 04:00 98.3 72 15 142/81 (101) 96 11/16/17 00:00 98.0 73 15 146/81 (102) 94 11/15/17 23:00 67 11/15/17 20:00 81 15 127/65 (85) 97 11/15/17 19:00 97 Room Air 11/15/17 16:19 97.8 79 18 139/75 (96) 97 Physical Exam General: He is a well-nourished slightly overweight male, not acute distress HEENT: No other obvious skull abnormality seen. Pupils equal. Nonicteric sclera. No CSF drainage noted from his ears or nose. Neuro: Awake, alert, oriented 3. Speech is fluent. Follows commands without apraxia. Cranial nerves: pupil equal, round, and reactive to light. Extra- ocular movements are intact. Facial motor and sensory function are normal and symmetrical. Gross hearing is intact, bilaterally. The uvula is midline and elevates symmetrically with the soft palate. Sternocleidomastoid and trapezius muscles have normal and symmetrical strength. Other cranial nerves are intact. Neck is soft and supple. Cervical spine has a full range of motion in anterior flexion, extension, lateral bending, and rotation without pain. There is no tenderness to palpation to the spinous processes or paraspinal muscles. Musculoskeletal: reveals normal bulk and tone overall without rigidity, no obvious deformities to his extremities. Muscle strength is 5/5 in all muscle groups of both upper extremities including deltoid, biceps, triceps, brachioradialis, wrist extension and mixed animal veterinarian. In the lower extremities, strength is 5/5 in both iliopsoas, quadriceps, hamstrings, plantar flexion, dorsiflexion , and extensor hallicus longus. Sensory examination is intact to light touch in both the upper and lower extremities, symmetrically. Deep tendon reflexes are 2+ and symmetrical in the biceps, triceps, and brachioradialis, bilaterally, in the upper extremities. In the lower extremities , the patellar and Achilles are 2+, bilaterally. There is a bilateral plantar flexion response. Hoffmanns sign is negative. There is no clonus or other abnormal reflexes noted. Cerebellar examination is intact to [id number] test, rapid rhythmic alternating motion. There is no dysmetria, dysdiadochokinesia, truncal ataxia, or tremor. Heart regular rate rhythm Respiratory lungs clear to auscultate bilaterally Abdomen soft nontender Skin warm and dry Medications Current Medications Current Medications Potassium Chloride 100 ml @ 50 mls/hr Q2H PRN IV For Potassium 2.8 - 3.2 mEq/L ; Start 11/15/17 at 07:45 Potassium Chloride 100 ml @ 50 mls/hr Q2H PRN IV For Potassium 2.8 - 3.2 mEq/L ; Start 11/15/17 at 07:45 Potassium Bicarb/ Potassium Chloride (K-Lyte Cl Eff) 50 meq UNSCH PRN PO For Potassium 3.3 - 3.5 mEq/L; Start 11/15/17 at 07:45 Potassium Chloride 100 ml @ 25 mls/hr UNSCH PRN IV For Potassium 3.3 - 3.5 mEq /L; Start 11/15/17 at 07:45 Potassium Chloride 100 ml @ 50 mls/hr Q2H PRN IV For Potassium 3.3 - 3.5 mEq/L ; Start 11/15/17 at 07:45 Magnesium Sulfate 4 gm/Sodium Chloride 100 ml @ 50 mls/hr UNSCH PRN IV For Magnesium 0.9 - 1.1 mg/dL; Start 11/15/17 at 07:45 Magnesium Oxide (Mag-Ox) 800 mg UNSCH PRN PO For Magnesium 1.2 - 1.6 mg/dL; Start 11/15/17 at 07:45 Magnesium Sulfate 2 gm/Sodium Chloride 100 ml @ 50 mls/hr UNSCH PRN IV For Magnesium 1.2 - 1.6 mg/dL; Start 11/15/17 at 07:45 Potassium Phosphate (K-Phos) 2,000 mg Q4H PRN PO For Phosphorus < 2.5 mg/dL; Start 11/15/17 at 07:45 Sodium Phosphate 30 mmol/Sodium Chloride 250 ml @ 42 mls/hr UNSCH PRN IV For Phosphorus < 2.5 mg/dL; Start 11/15/17 at 07:45 Potassium Phosphate (K-Phos) 2,000 mg UNSCH PRN PO/TUBE SEE LABEL COMMENTS; Start 11/15/17 at 07:45 Potassium Phosphate 30 mmol/ Sodium Chloride 260 ml @ 42 mls/hr UNSCH PRN IV SEE LABEL COMMENTS; Start 11/15/17 at 07:45 Dextrose (D50w (Vial) Inj) 25 ml UNSCH PRN IV PUSH HYPOGLYCEMIA-SEE COMMENTS; Start 11/15/17 at 07:45 Insulin Human Regular (NovoLIN R SUPPLEMENTAL SCALE) 1 ACHS AND 3AM SQ ; Start 11/15/17 at 08:00 Sodium Chloride 1,000 ml @ 84 mls/hr [id number] IV ; Start 11/15/17 at 08:00; Stop 11/15/17 at 12:01; Status DC Ondansetron HCl (Zofran Inj) 4 mg Q6H PRN IV PUSH NAUSEA OR VOMITING; Start at 07:45 Albuterol/ Ipratropium (Duoneb Neb) 1 ampule Q2HR NEB PRN INH WHEEZING; Start 11/15/17 at 07:45 Miscellaneous Information 1 [id number] Last administered on 11/15/17at 07:45; Start 11/15/17 at 07:45 Chlorhexidine Gluconate (Chlorhexidine 2% Cloth) 3 pack Taper DAILY@04 TOP ; Start 11/16/17 at 04:00; Stop 11/12/18 at 03:59 Chlorhexidine Gluconate (Chlorhexidine 2% Cloth) 3 pack UNSCH PRN TOP HYGIENIC CARE; Start 11/15/17 at 07:45 Senna/Docusate Sodium (Nereida-Colace) 1 tab BID PO Last administered on at 10:01; Start 11/15/17 at 09:00 Magnesium Hydroxide (Milk Of Magnesia Liq) 30 ml Q12H PRN PO Mild constipation ; Start 11/15/17 at 07:45 Sennosides (Senokot) 17.2 mg Q12H PRN PO Moderate constipation; Start 11/15/17 at 07:45 Amlodipine Besylate (Norvasc) 10 mg DAILY PO Last administered on 11/16/17at 10: 01; Start 11/15/17 at 11:00 Hydrochlorothiazide (Hydrodiuril) 25 mg DAILY PO Last administered on at 10:01; Start 11/15/17 at 11:00 Pravastatin Sodium (Pravachol) 10 mg DAILY PO Last administered on 11/16/17 10 :01; Start 11/15/17 at 11:00 Metoprolol Tartrate (Lopressor) 100 mg BID PO Last administered on 11/16/17 10 :01; Start 11/15/17 at 11:00 Lisinopril (Prinivil) 40 mg DAILY PO Last administered on 11/16/17 10:00; Start 11/15/17 at 11:00 Pantoprazole Sodium (Protonix) 40 mg DAILY PO Last administered on 11/16/17at 10 :00; Start 11/15/17 at 11:00 Attending Statement Continue neuro checks in a serial fashion. Meningioma. Continue nonoperative treatment aggressive pulmonary toilette, nasotracheal suction, and breathing treatments with nebulizers. Renal. monitor closely urine output, BUN and creatinine Endocrine. Monitor serial Acu checks and SSI as needed in detail ID monitor for signs of infection Protonix for stress ulcer prophylaxis Nick hose and SCD's for DVT prophylaxis. Once sybncope workup is completed, can discharge home.Per Neurosurgical standpoint Amrik Mauro MD Nov 16, 2017 13:43
--- NOTE | 2017-11-16 13:44 | HHI.NSPN ---
(Makayla Montez) Note Status Status: Progress Note (Makayla Montez) Interval History Interval History Mr. Nuñez is a 47-year-old male who presents to [facility] as a transfer from [facility] for traumatic head injury. Apparently last night he was out for dinner, he had a forceful cough and reported blacking out and falling to the floor hitting his head. Denies any seizure-like activities, bowel or bladder incontinence, tongue biting. He was taken to [facility] where he was found to have depressed skull fracture. He also had repair of forehead lac. He was transferred to [facility] for neurosurgical evaluation. Currently the patient is awake alert. He reports improving headaches. He denies drainage from his ears or nose. He denies any focal weakness, seizure-like activities, chest pain, shortness of breath. He has chronic paresthesias in his feet and chronic lumbar pain due to his multiple lumbar surgeries. He denies any other history of seizures. However he has had in the past prior history of syncope during a forceful cough. He has not been worked up for this. 11/16: doing well reports no further syncopal episode, denies headaches, no new neuro complaints. (Makayla Montez) Labs, Micro, & Vital Signs Results Date Time Temp Pulse Resp B/P (MAP) Pulse Ox O2 Delivery O2 Flow Rate FiO2 11/16/17 12:10 Room Air 11/16/17 12:00 98.6 77 12 131/76 (94) 95 11/16/17 08:00 98.2 74 15 135/82 (99) 98 11/16/17 04:00 98.3 72 15 142/81 (101) 96 11/16/17 00:00 98.0 73 15 146/81 (102) 94 11/15/17 23:00 67 11/15/17 20:00 81 15 127/65 (85) 97 11/15/17 19:00 97 Room Air 11/15/17 16:19 97.8 79 18 139/75 (96) 97 Constitutional Vital Signs Date Time Temp Pulse Resp B/P (MAP) Pulse Ox O2 Delivery O2 Flow Rate FiO2 11/16/17 12:10 Room Air 11/16/17 12:00 98.6 77 12 131/76 (94) 95 11/16/17 08:00 98.2 74 15 135/82 (99) 98 11/16/17 04:00 98.3 72 15 142/81 (101) 96 11/16/17 00:00 98.0 73 15 146/81 (102) 94 11/15/17 23:00 67 11/15/17 20:00 81 15 127/65 (85) 97 11/15/17 19:00 97 Room Air 11/15/17 16:19 97.8 79 18 139/75 (96) 97 (Makayla Montez) Review of Systems Constitutional: DENIES: Fever, Chills Eyes: DENIES: Vision loss Cardiovascular: DENIES: Chest pain Neurologic: COMPLAINS OF: Headache, Paresthesias, DENIES: Localized weakness ( Makayla Montez) Physical Exam General: Well-nourished slightly overweight male HEENT: No other obvious skull abnormality seen. Pupils equal. Nonicteric sclera. No CSF drainage noted from his ears or nose. Neuro: Awake, alert, oriented 3. Speech is fluent. Follows commands without apraxia. Cranial nerves: pupil equal, round, and reactive to light. Extra- ocular movements are intact. Facial motor and sensory function are normal and symmetrical. Gross hearing is intact, bilaterally. The uvula is midline and elevates symmetrically with the soft palate. Sternocleidomastoid and trapezius muscles have normal and symmetrical strength. Other cranial nerves are intact. Neck is soft and supple. Cervical spine has a full range of motion in anterior flexion, extension, lateral bending, and rotation without pain. There is no tenderness to palpation to the spinous processes or paraspinal muscles. Musculoskeletal: reveals normal bulk and tone overall without rigidity, no obvious deformities to his extremities. Muscle strength is 5/5 in all muscle groups of both upper extremities including deltoid, biceps, triceps, brachioradialis, wrist extension and pipelines supervisor. In the lower extremities, strength is 5/5 in both iliopsoas, quadriceps, hamstrings, plantar flexion, dorsiflexion , and extensor hallicus longus. Sensory examination is intact to light touch in both the upper and lower extremities, symmetrically. Deep tendon reflexes are 2+ and symmetrical in the biceps, triceps, and brachioradialis, bilaterally, in the upper extremities. In the lower extremities , the patellar and Achilles are 2+, bilaterally. There is a bilateral plantar flexion response. Hoffmanns sign is negative. There is no clonus or other abnormal reflexes noted. Cerebellar examination is intact to [id number] test, rapid rhythmic alternating motion. There is no dysmetria, dysdiadochokinesia, truncal ataxia, or tremor. Heart regular rate rhythm Respiratory lungs clear to auscultate bilaterally Abdomen soft nontender (Makayla Montez) General: Comfortable, in no distress HEENT: No other obvious skull abnormality seen. Pupils equal. Nonicteric sclera. No CSF drainage noted from his ears or nose. Neuro: Awake, alert, oriented 3. Speech is fluent. Follows commands without apraxia. Cranial nerves: pupil equal, round, and reactive to light. Extra- ocular movements are intact. Facial motor and sensory function are normal and symmetrical. Gross hearing is intact, bilaterally. The uvula is midline and elevates symmetrically with the soft palate. Sternocleidomastoid and trapezius muscles have normal and symmetrical strength. Other cranial nerves are intact. Neck is soft and supple. Cervical spine has a full range of motion in anterior flexion, extension, lateral bending, and rotation without pain. There is no tenderness to palpation to the spinous processes or paraspinal muscles. Musculoskeletal: reveals normal bulk and tone overall without rigidity, no obvious deformities to his extremities. Muscle strength is 5/5 in all muscle groups of both upper extremities including deltoid, biceps, triceps, brachioradialis, wrist extension and pipelines supervisor. In the lower extremities, strength is 5/5 in both iliopsoas, quadriceps, hamstrings, plantar flexion, dorsiflexion , and extensor hallicus longus. Sensory examination is intact to light touch in both the upper and lower extremities, symmetrically. Deep tendon reflexes are 2+ and symmetrical in the biceps, triceps, and brachioradialis, bilaterally, in the upper extremities. In the lower extremities , the patellar and Achilles are 2+, bilaterally. There is a bilateral plantar flexion response. Hoffmanns sign is negative. There is no clonus or other abnormal reflexes noted. Cerebellar examination is intact to [id number] test, rapid rhythmic alternating motion. There is no dysmetria, dysdiadochokinesia, truncal ataxia, or tremor. Heart regular rate rhythm Respiratory lungs clear to auscultate bilaterally Abdomen soft nontender (Amrik Mauro MD) Medications Current Medications Current Medications Medications (Trade) Dose Ordered Sig/Anita Route PRN Reason Start Time Stop Time Status Last Admin Dose Admin Potassium Chloride 100 ml @ 50 mls/hr Q2H PRN IV For Potassium 2.8 - 3.2 mEq/L 11/15/17 07:45 Potassium Chloride 100 ml @ 50 mls/hr Q2H PRN IV For Potassium 2.8 - 3.2 mEq/L 11/15/17 07:45 Potassium Bicarb/ Potassium Chloride (K-Lyte Cl Eff) 50 meq UNSCH PRN PO For Potassium 3.3 - 3.5 mEq/L 11/15/17 07:45 Potassium Chloride 100 ml @ 25 mls/hr UNSCH PRN IV For Potassium 3.3 - 3.5 mEq/L 11/15/17 07:45 Potassium Chloride 100 ml @ 50 mls/hr Q2H PRN IV For Potassium 3.3 - 3.5 mEq/L 11/15/17 07:45 Magnesium Sulfate 4 gm/Sodium Chloride 100 ml @ 50 mls/hr UNSCH PRN IV For Magnesium 0.9 - 1.1 mg/dL 11/15/17 07:45 Magnesium Oxide (Mag-Ox) 800 mg UNSCH PRN PO For Magnesium 1.2 - 1.6 mg/dL 11/15/17 07:45 Magnesium Sulfate 2 gm/Sodium Chloride 100 ml @ 50 mls/hr UNSCH PRN IV For Magnesium 1.2 - 1.6 mg/dL 11/15/17 07:45 Potassium Phosphate (K-Phos) 2,000 mg Q4H PRN PO For Phosphorus < 2.5 mg/dL 11/15/17 07:45 Sodium Phosphate 30 mmol/Sodium Chloride 250 ml @ 42 mls/hr UNSCH PRN IV For Phosphorus < 2.5 mg/dL 11/15/17 07:45 Potassium Phosphate (K-Phos) 2,000 mg UNSCH PRN PO/TUBE SEE LABEL COMMENTS 11/15/17 07:45 Potassium Phosphate 30 mmol/ Sodium Chloride 260 ml @ 42 mls/hr UNSCH PRN IV SEE LABEL COMMENTS 11/15/17 07:45 Dextrose (D50w (Vial) Inj) 25 ml UNSCH PRN IV PUSH HYPOGLYCEMIA-SEE COMMENTS 11/15/17 07:45 Insulin Human Regular (NovoLIN R SUPPLEMENTAL SCALE) 1 ACHS AND 3AM SQ 11/15/17 08:00 Ondansetron HCl (Zofran Inj) 4 mg Q6H PRN IV PUSH NAUSEA OR VOMITING 11/15/17 07:45 Albuterol/ Ipratropium (Duoneb Neb) 1 ampule Q2HR NEB PRN INH WHEEZING 11/15/17 07:45 Miscellaneous Information 1 Q361D XX 11/15/17 07:45 11/15/17 07:45 Chlorhexidine Gluconate (Chlorhexidine 2% Cloth) 3 pack Taper DAILY@04 TOP 11/16/17 04:00 11/12/18 03:59 Chlorhexidine Gluconate (Chlorhexidine 2% Cloth) 3 pack UNSCH PRN TOP HYGIENIC CARE 11/15/17 07:45 Senna/Docusate Sodium (Nereida-Colace) 1 tab BID PO 11/15/17 09:00 11/16/17 10:01 Magnesium Hydroxide (Milk Of Magnesia Liq) 30 ml Q12H PRN PO Mild constipation 11/15/17 07:45 Sennosides (Senokot) 17.2 mg Q12H PRN PO Moderate constipation 11/15/17 07:45 Amlodipine Besylate (Norvasc) 10 mg DAILY PO 11/15/17 11:00 11/16/17 10:01 Hydrochlorothiazide (Hydrodiuril) 25 mg DAILY PO 11/15/17 11:00 11/16/17 10:01 Pravastatin Sodium (Pravachol) 10 mg DAILY PO 11/15/17 11:00 11/16/17 10:01 Metoprolol Tartrate (Lopressor) 100 mg BID PO 11/15/17 11:00 11/16/17 10:01 Lisinopril (Prinivil) 40 mg DAILY PO 11/15/17 11:00 11/16/17 10:00 Pantoprazole Sodium (Protonix) 40 mg DAILY PO 11/15/17 11:00 11/16/17 10:00 (Makayla Montez) Current Medications Current Medications Potassium Chloride 100 ml @ 50 mls/hr Q2H PRN IV For Potassium 2.8 - 3.2 mEq/L ; Start 11/15/17 at 07:45; Stop 11/18/17 at 02:51; Status DC Potassium Chloride 100 ml @ 50 mls/hr Q2H PRN IV For Potassium 2.8 - 3.2 mEq/L ; Start 11/15/17 at 07:45; Stop 11/18/17 at 02:51; Status DC Potassium Bicarb/ Potassium Chloride (K-Lyte Cl Eff) 50 meq UNSCH PRN PO For Potassium 3.3 - 3.5 mEq/L; Start 11/15/17 at 07:45; Stop 11/18/17 at 02:51; Status DC Potassium Chloride 100 ml @ 25 mls/hr UNSCH PRN IV For Potassium 3.3 - 3.5 mEq /L; Start 11/15/17 at 07:45; Stop 11/18/17 at 02:51; Status DC Potassium Chloride 100 ml @ 50 mls/hr Q2H PRN IV For Potassium 3.3 - 3.5 mEq/L ; Start 11/15/17 at 07:45; Stop 11/18/17 at 02:51; Status DC Magnesium Sulfate 4 gm/Sodium Chloride 100 ml @ 50 mls/hr UNSCH PRN IV For Magnesium 0.9 - 1.1 mg/dL; Start 11/15/17 at 07:45; Stop 11/18/17 at 02:51; Status DC Magnesium Oxide (Mag-Ox) 800 mg UNSCH PRN PO For Magnesium 1.2 - 1.6 mg/dL; Start 11/15/17 at 07:45; Stop 11/18/17 at 02:51; Status DC Magnesium Sulfate 2 gm/Sodium Chloride 100 ml @ 50 mls/hr UNSCH PRN IV For Magnesium 1.2 - 1.6 mg/dL; Start 11/15/17 at 07:45; Stop 11/18/17 at 02:51; Status DC Potassium Phosphate (K-Phos) 2,000 mg Q4H PRN PO For Phosphorus < 2.5 mg/dL; Start 11/15/17 at 07:45; Stop 11/18/17 at 02:51; Status DC Sodium Phosphate 30 mmol/Sodium Chloride 250 ml @ 42 mls/hr UNSCH PRN IV For Phosphorus < 2.5 mg/dL; Start 11/15/17 at 07:45; Stop 11/18/17 at 02:51; Status DC Potassium Phosphate (K-Phos) 2,000 mg UNSCH PRN PO/TUBE SEE LABEL COMMENTS; Start 11/15/17 at 07:45; Stop 11/18/17 at 02:51; Status DC Potassium Phosphate 30 mmol/ Sodium Chloride 260 ml @ 42 mls/hr UNSCH PRN IV SEE LABEL COMMENTS; Start 11/15/17 at 07:45; Stop 11/18/17 at 02:51; Status DC Dextrose (D50w (Vial) Inj) 25 ml UNSCH PRN IV PUSH HYPOGLYCEMIA-SEE COMMENTS; Start 11/15/17 at 07:45; Stop 11/18/17 at 02:51; Status DC Insulin Human Regular (NovoLIN R SUPPLEMENTAL SCALE) 1 ACHS AND 3AM SQ ; Start 11/15/17 at 08:00; Stop 11/18/17 at 02:51; Status DC Sodium Chloride 1,000 ml @ 84 mls/hr [id number] IV ; Start 11/15/17 at 08:00; Stop 11/15/17 at 12:01; Status DC Ondansetron HCl (Zofran Inj) 4 mg Q6H PRN IV PUSH NAUSEA OR VOMITING; Start at 07:45; Stop 11/18/17 at 02:51; Status DC Albuterol/ Ipratropium (Duoneb Neb) 1 ampule Q2HR NEB PRN INH WHEEZING; Start 11/15/17 at 07:45; Stop 11/18/17 at 02:51; Status DC Miscellaneous Information 1 Q361D XX Last administered on 11/15/17at 07:45; Start 11/15/17 at 07:45; Stop 11/18/17 at 02:51; Status DC Chlorhexidine Gluconate (Chlorhexidine 2% Cloth) 3 pack Taper DAILY@04 TOP ; Start 11/16/17 at 04:00; Stop 11/18/17 at 02:51; Status DC Chlorhexidine Gluconate (Chlorhexidine 2% Cloth) 3 pack UNSCH PRN TOP HYGIENIC CARE; Start 11/15/17 at 07:45; Stop 11/18/17 at 02:51; Status DC Senna/Docusate Sodium (Nereida-Colace) 1 tab BID PO Last administered on at 10:01; Start 11/15/17 at 09:00; Stop 11/18/17 at 02:51; Status DC Magnesium Hydroxide (Milk Of Magnesia Liq) 30 ml Q12H PRN PO Mild constipation ; Start 11/15/17 at 07:45; Stop 11/18/17 at 02:51; Status DC Sennosides (Senokot) 17.2 mg Q12H PRN PO Moderate constipation; Start 11/15/17 at 07:45; Stop 11/18/17 at 02:51; Status DC Amlodipine Besylate (Norvasc) 10 mg DAILY PO Last administered on 11/16/17at 10: 01; Start 11/15/17 at 11:00; Stop 11/18/17 at 02:51; Status DC Hydrochlorothiazide (Hydrodiuril) 25 mg DAILY PO Last administered on at 10:01; Start 11/15/17 at 11:00; Stop 11/18/17 at 02:51; Status DC Pravastatin Sodium (Pravachol) 10 mg DAILY PO Last administered on 11/16/17at 10 :01; Start 11/15/17 at 11:00; Stop 11/18/17 at 02:51; Status DC Metoprolol Tartrate (Lopressor) 100 mg BID PO Last administered on 11/16/17at 10 :01; Start 11/15/17 at 11:00; Stop 11/18/17 at 02:51; Status DC Lisinopril (Prinivil) 40 mg DAILY PO Last administered on 11/16/17at 10:00; Start 11/15/17 at 11:00; Stop 11/18/17 at 02:51; Status DC Pantoprazole Sodium (Protonix) 40 mg DAILY PO Last administered on 11/16/17at 10 :00; Start 11/15/17 at 11:00; Stop 11/18/17 at 02:51; Status DC (Amrik Mauro MD) Plan Plan Remarks no further NRS intervention planned, nonsurgical management cont medical management ok to dc from NRS standpoint when medically cleared (Hill,Makayla A. PA) Attending Statement As above Continue nonoperative management for traumatic brain injury Continue neuro checks. Pulmonary.. Continue aggressive pulmonary toilette, nasotracheal suction, and breathing treatments with nebulizers. Nutrition. NPO Renal. monitor closely urine output, BUN and creatinine Endocrine. Monitor serial Acu checks and SSI as needed in detail ID monitor for signs of infection Protonix for stress ulcer prophylaxis Nick hose and SCD's for DVT prophylaxis. The exam, history, and the medical decision-making described in the above note were completed with the assistance of the mid-level provider. I reviewed and agree with the findings presented. I attest that I had a [id number] encounter with the patient on the same day, and personally performed and documented my assessment and findings in the medical record. (Amrik Mauro MD) Makayla Montez Nov 16, 2017 13:44 Amrik Mauro MD Nov 19, 2017 16:44
[2017-11-16 16:00] VITALS: BP 133/78; PULSE 74; RESP 14; TEMP 98.4; O2SAT 96
== END 2017-11-16 17:16 | disposition home or self-care (01) | DRG 87 ==
LOC: N03A 11-15 05:50 → N03B 11-15 15:43
PROVIDERS: ADMIT Hospitalist; ATTEND Hospitalist
DX: S02.91XA Unspecified fracture of skull, initial encounter for closed fracture (principal); S06.4X0A Epidural hemorrhage without loss of consciousness, initial encounter; I10 Essential (primary) hypertension; D32.9 Benign neoplasm of meninges, unspecified; E78.5 Hyperlipidemia, unspecified; F10.129 Alcohol abuse with intoxication, unspecified; F17.210 Nicotine dependence, cigarettes, uncomplicated; M54.5 Low back pain; R20.2 Paresthesia of skin; Z88.0 Allergy status to penicillin; E66.3 Overweight; Z68.37 Body mass index [BMI] 37.0-37.9, adult; W18.30XA Fall on same level, unspecified, initial encounter
CPT/HCPCS: 70450; 80048; 80053; 80061; 82948; 85027; 87641; 93306; 93880; 94150; 94640; 94667; 94668